=== PATIENT | male | born 1995 | race Caucasian/White ===

== ENCOUNTER 2016-08-04 10:16 | Emergency (ER) | payer BC ==
[~2016-08-04] VITALS: Ht 182.9 cm; Wt 78.3 kg
[2016-08-04 10:25] VITALS: TEMP 36.8; Ht 182.9 cm; Wt 78.3 kg
[2016-08-04 10:29] VITALS: O2SAT 95
[2016-08-04] MEDS ORDERED: SODIUM CHLORIDE 0.9% 1000ML 1,000 ML IV STA ×2 (10:30)
--- NOTE | 2016-08-04 10:38 | EMERGENCY ROOM VISIT NOTE ---
History Report prepared by Ralphibe: Shira Del Castillo Under the Supervision of: Dr. Maria Guadalupe Willson M.D. First contact with patient: 10:22 Stated Complaint: SEIZURES History of Present Illness The patient is a 21 year old male who presents to the Emergency Room with complaints of a seizure-like episode that occurred this morning. The patient states that he was awake all night studying for an exam that is supposed to take place this morning. He admits to drinking a lot of caffeine including coffee and energy drinks. He also admits to using chewing tobacco. Two days ago , he took someone else's Adderall. This morning, he remembers studying and suddenly woke up sitting on the ground. His friend's witnessed the patient having a seizure, but did not tell him what happened before he came to the ED. He does not think he hit his head as his head does not hurt, but later in the conversation states that he does have a headache. Currently, he complains of some difficulty breathing. He notes that he did sleep two nights ago. He does not have a history of seizures. The patient smokes cigarettes occasionally when he drinks alcohol. Source of History: patient Onset: this morning Position: other (global) Quality: other (seizure-like) Timing: other (episode) Associated Symptoms: + SOB, + headache Review of Systems See HPI for pertinent positives & negatives. A total of 10 systems reviewed and were otherwise negative. Past Medical & Surgical Medical Problems: (1) No Known Active Medical Problems Family History No pertinent family history stated. Social History Smoking Status: Current Some Day Smoker Alcohol Use: occasionally Housing Status: lives with roommate Occupation Status: [employer] student Current/Historical Medications Miscellaneous Medications Amphetamine-Dextroamphetamine 20MG (Adderall 20MG), 20 MG PO Allergies Coded Allergies: No Known Allergies (Unverified , 08/04/16) Physical Exam Vital Signs Date Time Temp Pulse Resp B/P Pulse Ox O2 Delivery O2 Flow Rate FiO2 08/04/16 13:00 95 18 153/93 98 Room Air 08/04/16 12:00 90 18 153/93 98 Room Air 08/04/16 11:09 92 20 141/84 98 Room Air 08/04/16 10:30 140 08/04/16 10:29 95 Room Air 08/04/16 10:25 36.8 131 26 146/84 95 Room Air Physical Exam Vital signs reviewed. General: Well-appearing 21 year old male, in no significant distress. HEENT: No scleral icterus, PERRLA, neck supple. Atraumatic. Cardiovascular: Tachycardic rate and regular rhythm, no extra sounds. Pulmonary: Clear to auscultation bilaterally, normal work of breathing. Abdomen: Soft, nontender, nondistended, positive bowel sounds. Musculoskeletal: Atraumatic, no peripheral edema. Neurologic: Patient awake alert and oriented x 3, full strength in all 4 extremities. Cranial nerves 2 through 12 grossly intact. Skin: Warm, dry, no rash Medical Decision & Procedures ER Provider Diagnostic Interpretation: Radiology results as stated below per my review and radiologist interpretation: CT HEAD WITHOUT CONTRAST (CT) CLINICAL HISTORY: Syncope. Seizure. COMPARISON STUDY: No previous studies for comparison. TECHNIQUE: Axial CT of the brain is performed from the vertex to the skull base. IV contrast was not administered for this examination. CT DOSE: 614.27 mGy.cm FINDINGS: No intra or extra-axial mass lesions are visualized. There is no CT evidence of acute cortical infarction. There is no evidence of midline shift. There is no acute hemorrhage. No calvarial fractures are visualized. There are patchy white matter hypodensities likely on a small vessel basis. There is no evidence of pathologic ventricular dilatation. There is minor mucosal thickening within the right maxillary sinus. There is no evidence of acute sinusitis. IMPRESSION: Normal noncontrast head CT. Electronically signed by: Juan R Andrade M.D. 08/04/2016 11:05 AM Dictated Date/Time: 08/04/2016 11:04 AM Laboratory Results 08/04/16 10:45 Red Blood Count 5.14, Mean Corpuscular Volume 79.0, Mean Corpuscular Hemoglobin 27.6, Mean Corpuscular Hemoglobin Concent 35.0, Mean Platelet Volume 9.1, Neutrophils (%) (Auto) 76.8, Lymphocytes (%) (Auto) 17.1, Monocytes (%) (Auto) 5.6, Eosinophils (%) (Auto) 0.2, Basophils (%) (Auto) 0.1, Neutrophils # (Auto) 6.41, Lymphocytes # (Auto) 1.43, Monocytes # (Auto) 0.47, Eosinophils # (Auto) 0.02, Basophils # (Auto) 0.01 08/04/16 10:45 Test 08/04/16 10:45 08/04/16 12:10 White Blood Count 8.36 K/uL (4.8-10.8) Red Blood Count 5.14 M/uL (4.7-6.1) Hemoglobin 14.2 g/dL (14.0-18.0) Hematocrit 40.6 % (42-52) Mean Corpuscular Volume 79.0 fL (80-100) Mean Corpuscular Hemoglobin 27.6 pg (25-34) Mean Corpuscular Hemoglobin Concent 35.0 g/dl (32-36) Platelet Count 218 K/uL (130-400) Mean Platelet Volume 9.1 fL (7.4-10.4) Neutrophils (%) (Auto) 76.8 % Lymphocytes (%) (Auto) 17.1 % Monocytes (%) (Auto) 5.6 % Eosinophils (%) (Auto) 0.2 % Basophils (%) (Auto) 0.1 % Neutrophils # (Auto) 6.41 K/uL (1.4-6.5) Lymphocytes # (Auto) 1.43 K/uL (1.2-3.4) Monocytes # (Auto) 0.47 K/uL (0.11-0.59) Eosinophils # (Auto) 0.02 K/uL (0-0.5) Basophils # (Auto) 0.01 K/uL (0-0.2) RDW Standard Deviation 36.0 fL (36.4-46.3) RDW Coefficient of Variation 12.4 % (11.5-14.5) Immature Granulocyte % (Auto) 0.2 % Immature Granulocyte # (Auto) 0.02 K/uL (0.00-0.02) Anion Gap 13.0 mmol/L (3-11) Est Creatinine Clear Calc Drug Dose 90.9 ml/min Estimated GFR () 82.1 Estimated GFR (Non- 70.8 BUN/Creatinine Ratio 8.8 (10-20) Calcium Level 9.3 mg/dl (8.5-10.1) Magnesium Level 2.2 mg/dl (1.8-2.4) Total Bilirubin 1.7 mg/dl (0.2-1) Direct Bilirubin 0.3 mg/dl (0-0.2) Aspartate Amino Transf (AST/SGOT) 13 U/L (15-37) Alanine Aminotransferase (ALT/SGPT) 24 U/L (12-78) Alkaline Phosphatase 89 U/L (45-117) Total Protein 8.2 gm/dl (6.4-8.2) Albumin 4.6 gm/dl (3.4-5.0) Thyroid Stimulating Hormone (TSH) 1.460 uIu/ml (0.300-4.500) Salicylates Level < 2.8 mg/dl (2.8-20) Acetaminophen Level < 2 ug/ml (10-30) Ethyl Alcohol mg/dL < 3.0 mg/dl (0-3) Urine Color YELLOW Urine Appearance CLEAR (CLEAR) Urine pH 6.5 (4.5-7.5) Urine Specific [place] 1.009 (1.000-1.030) Urine Protein NEG (NEG) Urine Glucose (UA) NEG (NEG) Urine Ketones NEG (NEG) Urine Occult Blood TRACE (NEG) Urine Nitrite NEG (NEG) Urine Bilirubin NEG (NEG) Urine Urobilinogen NEG (NEG) Urine Leukocyte Esterase NEG (NEG) Urine WBC (Auto) 0 /hpf (0-5) Urine RBC (Auto) 0-4 /hpf (0-4) Urine Hyaline Casts (Auto) 1-5 /lpf (0-5) Urine Epithelial Cells (Auto) 0-5 /lpf (0-5) Urine Bacteria (Auto) NEG (NEG) Urine Opiates Screen NEG (NEG) Urine Methadone, Qualitative NEG (NEG) Urine Barbiturates NEG (NEG) Urine Phencyclidine (PCP) Level NEG (NEG) Ur Amphetamine/Methamphetamine POS (NEG) MDMA (Ecstasy) Screen NEG (NEG) Urine Benzodiazepines Screen NEG (NEG) Urine Cocaine Metabolite NEG (NEG) Urine Marijuana (THC) NEG (NEG) Laboratory results per my review. Medications Administered Medications (Trade) Dose Ordered Sig/Neisha Route Start Time Stop Time Status Last Admin Dose Admin Sodium Chloride 1,000 ml @ 999 mls/hr Q1H1M STAT IV 08/04/16 10:30 08/04/16 11:30 DC 08/04/16 11:09 999 MLS/HR Sodium Chloride (Nss 1000ml) 1,000 ml @ 125 mls/hr Q8H STAT IV 08/04/16 10:30 08/04/16 13:38 DC 08/04/16 12:02 125 MLS/HR ECG Indication: other (seizure) Rate (beats per minute): 93 Rhythm: sinus with SA Findings: no acute ischemic change, no ectopy ED Course 1024: The patient was evaluated in room B1. A complete history and physical examination was performed. 1030: Ordered NSS 1000 ml @ 125 mls/hr IV, NSS 1000 ml @ 999 mls/hr IV. 1226: I discussed the case with Dr. Yessica REYNOLDS Neurologist. He agreed to hold off on treatment at this time. 1240: Upon reevaluation, the patient was resting comfortably. I discussed findings with him. He verbalized agreement of the treatment plan. The patient was discharged home. Medical Decision Differential diagnosis: Etiologies such as infection, hypoglycemia, electrolyte abnormalities, cardiac sources, intracerebral event, trauma, toxicologic, neurologic, as well as others were entertained. This patient was evaluated and appeared to be in no significant distress. Physical examination is fairly unrevealing. The patient has been up greater than 24 hours, he has used excessive stimulants and suffered a seizure. He has not had a seizure in the past. He states he is currently missing a very stressful exam. CT scan of the head is negative. Laboratory work is fairly unrevealing. Patient's heart rate did subside after IV hydration. I did discuss case with Dr. Juan of neurology. He feels the patient can be followed up in the outpatient setting. He does not recommend treatment at this time. The patient's license was [facility] to [facility]. He was advised not to drive until he is cleared by neurology. He will return to the ER for worsening of symptoms or any medical concerns. Consults Time Called: 1222 Consulting Physician: Dr. Yessica REYNOLDS Neurologist Returned Call: [phone] I discussed the case with him. He agreed to hold off on treatment at this time. Impression Primary Impression: Seizure Scribe Attestation The scribe's documentation has been prepared under my direction and personally reviewed by me in its entirety. I confirm that the note above accurately reflects all work, treatment, procedures, and medical decision making performed by me. Departure Information Dispostion Home / Self-Care Patient Instructions My [facility], Seizures - [facility] Additional Instructions Diagnosis: Seizure Please refrain from excessive stimulants. Sleep on a regular schedule. Avoid substances such as alcohol, nicotine. Follow-up with neurology, Dr. Juan within the next several weeks. Do not drive until you are cleared by neurology. Return to the ER for worsening of symptoms or any medical concerns.
[2016-08-04 10:55] LABS: BASO % 0.1 %; BASO ABS # 0.01 K/uL (0-0.2); COMPLETE YES; EOS % 0.2 %; HEMATOCRIT 40.6 % (42-52); IG% 0.2 %; LYMPH % 17.1 %; LYMPH ABS # 1.43 K/uL (1.2-3.4); MEAN CORPUSCULAR HEMOGLOBIN 27.6 pg (25-34); MEAN PLATELET VOLUME 9.1 fL (7.4-10.4); MONO % 5.6 %; NEUT % 76.8 %; PLATELET COUNT 218 K/uL (130-400); RED BLOOD COUNT 5.14 M/uL (4.7-6.1); WHITE BLOOD COUNT 8.36 K/uL (4.8-10.8)
--- NOTE | 2016-08-04 11:06 | DIAGNOSTIC IMAGING REPORT ---
CT HEAD WITHOUT CONTRAST (CT) CLINICAL HISTORY: Syncope. Seizure. COMPARISON STUDY: No previous studies for comparison. TECHNIQUE: Axial CT of the brain is performed from the vertex to the skull base. IV contrast was not administered for this examination. CT DOSE: 614.27 mGy.cm FINDINGS: No intra or extra-axial mass lesions are visualized. There is no CT evidence of acute cortical infarction. There is no evidence of midline shift. There is no acute hemorrhage. No calvarial fractures are visualized. There are patchy white matter hypodensities likely on a small vessel basis. There is no evidence of pathologic ventricular dilatation. There is minor mucosal thickening within the right maxillary sinus. There is no evidence of acute sinusitis. IMPRESSION: Normal noncontrast head CT. Electronically signed by: Juan R Andrade M.D. 08/04/2016 11:05 AM Dictated Date/Time: 08/04/2016 11:04 AM
[2016-08-04 11:13] LABS: BUN/CREATININE RATIO 8.8 (10-20); CALCIUM 9.3 mg/dl (8.5-10.1); CREATININE 1.4 mg/dl (0.60-1.40); MAGNESIUM 2.2 mg/dl (1.8-2.4); POTASSIUM 3.4 mmol/L (3.5-5.1)
[2016-08-04 11:23] LABS: THYROID STIMULATING HORMONE 1.46 uIu/ml (0.300-4.500)
[2016-08-04] MEDS ORDERED: AMPH20TA2 PO (11:29)
[2016-08-04 11:38] LABS: ACETAMINOPHEN < 2 ug/ml (10-30)
[2016-08-04 12:36] LABS: URINE APPEARANCE CLEAR (CLEAR); URINE BILIRUBIN NEG (NEG); URINE COLOR YELLOW; URINE EPITHELIAL CELL AUTO 0-5 /lpf (0-5); URINE NITRITE NEG (NEG); URINE PH 6.5 (4.5-7.5); URINE SPECIFIC GRAVITY 1.009 (1.000-1.030); UROBILINOGEN NEG (NEG); ZZUR CULT IF INDIC CLEAN CATCH NO
[2016-08-04 12:41] LABS: MANUAL MICROSCOPIC REQUIRED? NO; REVIEW REQ? NO
[2016-08-04 13:00] VITALS: BP 153/93; PULSE 95; O2SAT 98
[2016-08-04 13:22] LABS: BENZODIAZEPINE, URINE NEG (NEG); COCAINE,URINE NEG (NEG); PHENCYCLIDINE, URINE NEG (NEG)
== END 2016-08-04 13:04 | disposition home or self-care (01) ==
LOC: EDBD 10:16 → C.EDB 10:20
DX: R56.9 Unspecified convulsions (principal); F17.200 Nicotine dependence, unspecified, uncomplicated